=== PATIENT | male | born 1940 | race Hispanic/Latino ===

== ENCOUNTER 2018-08-24 19:54 | Emergency (ER) | payer MEDICARE ==
[~2018-08-24 19:54] MED LIST: ABIR250T PO; CYAN500L3 SL; LEVO500T2 PO; LISI1TAB13 PO; PNV1TABL57 PO; POTA20TA82 PO; PRED20TA3 PO; TAMS0.4C32 PO
[2018-08-24 20:18] LABS: BASOPHILS % (AUTO) 0.5 % (0.0-5.0); EOSINOPHILS % (AUTO) 0.3 % (0.0-8.0); HEMATOCRIT 28.5 % (42-54); LYMPHOCYTES % (AUTO) 26.6 % (21.0-51.0); MEAN CORPUSCULAR HEMOGLOBIN 31.1 pg (27.0-33.0); MEAN CORPUSCULAR HGB CONC 32.3 g/dL (32.0-36.0); MEAN CORPUSCULAR VOLUME 96.5 fL (79-99); MONOCYTES % (AUTO) 3.5 % (3.0-13.0); NEUTROPHILS % (AUTO) 69.1 % (40.0-77.0); NUCLEATED RED BLOOD CELLS 0.1 % (0.0-0.19); PLATELET COUNT (AUTO) 152 K/uL (130-400); RED BLOOD CELL COUNT(AUTO) 2.96 MIL/uL (4.50-6.20); RED CELL DISTRIBUTION WIDTH 15.2 % (11.0-15.5); WHITE BLOOD COUNT (AUTO) 5.9 K/uL (4.8-10.8)
[2018-08-24 20:29] LABS: CREATININE 2.2 mg/dL (0.5-1.5); POTASSIUM 4.6 mmol/L (3.5-5.1)
[2018-08-24] MEDS ORDERED: ONDANSETRON HCL 4 MG/2 ML VIAL ONE (20:37)
[2018-08-24] MEDS ORDERED: SODIUM CHLORIDE 0.9% 1000ML 1,000 ML IV ONE ×2 (20:37→22:36)
[2018-08-24 20:38] LABS: ALBUMIN 2.9 g/dL (3.5-5.0); BILIRUBIN,TOTAL 0.7 mg/dL (0.2-1.0); TOTAL PROTEIN, SERUM 6.3 g/dL (6.0-8.3)
== END 2018-08-25 00:53 | disposition home or self-care (01) ==
LOC: EDH 19:54
DX: E86.0 Dehydration (principal); I10 Essential (primary) hypertension; Z85.46 Personal history of malignant neoplasm of prostate
CPT/HCPCS: 36415; 80053; 82150; 82550; 83690; 84484; 85025; 93005; 96361; 96374; 99285; J2405; J7030 ×2

== ENCOUNTER 2020-01-23 08:59 | Inpatient (IN) | payer MEDICARE ==
[~2020-01-23] VITALS: Ht 152.4 cm; Wt 74.4 kg
[~2020-01-23 08:59] MED LIST changes: -LISI1TAB13 PO; +LISI1TAB29 PO
[2020-01-23 09:18] LABS: BASOPHILS % (AUTO) 0.1 % (0.0-5.0); EOSINOPHILS % (AUTO) 0.5 % (0.0-8.0); HEMATOCRIT 37.3 % (42-54); LYMPHOCYTES % (AUTO) 16.9 % (21.0-51.0); MEAN CORPUSCULAR HEMOGLOBIN 31.9 pg (27.0-33.0); MEAN CORPUSCULAR HGB CONC 30.8 g/dL (32.0-36.0); MEAN CORPUSCULAR VOLUME 103.3 fL (79-99); MONOCYTES % (AUTO) 12.8 % (3.0-13.0); NEUTROPHILS % (AUTO) 69.1 % (40.0-77.0); PLATELET COUNT (AUTO) 156 K/uL (130-400); RED BLOOD CELL COUNT(AUTO) 3.61 MIL/uL (4.50-6.20); WHITE BLOOD COUNT (AUTO) 7.9 K/uL (4.8-10.8)
[2020-01-23 09:22] LABS: APPEARANCE,URINE Clear (CLEAR); BILIRUBIN,URINE Negative (NEGATIVE); COLOR,URINE Yellow (YELLOW); GLUCOSE, URINE (UA) Negative (NEGATIVE); KETONES,URINE Negative (NEGATIVE); LEUKOCYTE ESTERASE ,URINE Negative (NEGATIVE); NITRATE,URINE Negative (NEGATIVE); OCCULT BLOOD,URINE Large (NEGATIVE); PROTEIN,URINE Trace mg/dL (NEGATIVE); UROBILINOGEN,URINE 0.2 mg/dL (0.2-1.0)
[2020-01-23 09:25] LABS: CREATININE 3.8 mg/dL (0.5-1.5)
[2020-01-23 09:30] LABS: ALBUMIN 3.5 g/dL (3.5-5.0); BILIRUBIN,TOTAL 0.6 mg/dL (0.2-1.0); TOTAL PROTEIN, SERUM 7.3 g/dL (6.0-8.3)
[2020-01-23 09:32] LABS: AMORPHOUS SEDIMENT,UR Few /LPF (None Seen); BACTERIA,URINE Rare /HPF (None Seen); RBC,URINE 26-50 /HPF (0-1); SQUAMOUS EPITHELIAL CELL,UR None Seen /HPF (0-2); WBC,URINE None Seen /HPF (0-1)
[2020-01-23 09:55] LABS: INR 0.91 (0.85-1.15); PARTIAL THROMBOPLASTIN TIME 24.7 SEC (26.3-35.5); PROTHROMBIN TIME 9.9 SEC (9.6-11.6)
[2020-01-23] MEDS: SODIUM CHLORIDE 0.9% 1000ML 1,000 ML IV SCH ×2 (11:30→13:30)
[2020-01-23 12:00] VITALS: BP 169/76
[2020-01-23] MEDS: CEFTRIAXONE SODIUM 1 GM IVP SCH (12:00)
[2020-01-23] MEDS ORDERED: MEGE40TA22 PO (12:10)
[2020-01-23] MEDS ORDERED: PRED10TA3 PO (12:13)
[2020-01-23] MEDS ORDERED: CEFTRIAXONE SODIUM 1 GM ONE (12:29)
--- NOTE | 2020-01-23 13:30 | NUR ---
UROLOGY CONSULT Dr. Poole notified of consult over the telephone and he is aware.
[2020-01-23 16:00] VITALS: BP 146/79
[2020-01-23 19:30] VITALS: BP 140/71
--- NOTE | 2020-01-23 20:00 | NUR ---
UROLOGY UPDATE Dr. Poole came to see patient. Stated this is a patient of Dr. Zuniga and to let him know in AM of consult. Aniwa Estefany and nurse Charlene have been updated. Family was updated as well. Urine is clear, yellow in Fuentes bag.
[2020-01-23 23:05] VITALS: BP 141/70
[2020-01-24 03:42] VITALS: BP 152/73
[2020-01-24] MEDS: SODIUM CHLORIDE 0.9% 1000ML 1,000 ML IV SCH ×4 (04:40→21:24)
--- NOTE | 2020-01-24 05:22 | NUR ---
SLEPT Pt slept well.Family member at bedside.Fuentes catheter patent,draining clear,yellow urine to bedside drainage.
[2020-01-24 07:15] VITALS: BP 158/75
[2020-01-24 11:04] VITALS: BP 142/68
[2020-01-24] MEDS: CEFTRIAXONE SODIUM 1 GM IVP SCH (14:02)
[2020-01-24 14:05] LABS: CREATININE 2.3 mg/dL (0.5-1.5); POTASSIUM 3.6 mmol/L (3.5-5.1)
[2020-01-24 15:45] VITALS: BP 146/69
--- NOTE | 2020-01-24 16:30 | NUR ---
[facility] consult Patient assessed as ordered. Patient previously had wound on left ankle anterior; wound has healed and requires only a protective dressing. Report given to patient's nurse, Olga REAL.
--- NOTE | 2020-01-24 16:46 | NUR ---
INITIAL SW met with patient. Patient lives with daughter, Yenny Meier, [phone]. Patient has [facility] daily. Patient has no PHC. DME: shower chair, [employer]. Patient needs help with ADL's. She states she gets tired. Patient does not drive. Daughter helps with transportation. PCP is dr. Ronen Tran. Pharmacy is [facility] in [place]. DCP is home. Addendum: 01/24/20 at 1649 by CRISTIANA RODRIGUEZ SS Amended: Links added.
[2020-01-24 19:00] VITALS: BP 141/69
--- NOTE | 2020-01-24 20:36 | NUR ---
MD Dr HENRIQUEZ came to see pt.He ordered ct scan and signed off case.
--- NOTE | 2020-01-24 22:24 | NUR ---
CT Pt taken to ct scan dept via wheelchair accompanied per tech.
[2020-01-25] VITALS: BP 144/79
[2020-01-25 04:00] VITALS: BP 156/73
[2020-01-25 07:46] VITALS: BP_SYST 139; BP_SYST 155; BP_DIAS 74; BP_DIAS 88
[2020-01-25 10:36] VITALS: BP 155/73
[2020-01-25] MEDS: CEFTRIAXONE SODIUM 1 GM IVP SCH (12:00)
[2020-01-25] MEDS: SODIUM CHLORIDE 0.9% 1000ML 1,000 ML IV SCH (13:30)
== END 2020-01-25 14:40 | disposition home or self-care (01) | DRG 699 ==
LOC: EDH 08:59 → EDHIP 11:08 → 3CH 13:00
PROVIDERS: ADMIT Internal Medicine Hematology & Oncology; ATTEND Internal Medicine Hematology & Oncology
DX: N13.9 Obstructive and reflux uropathy, unspecified (principal); N17.9 Acute kidney failure, unspecified; C79.51 Secondary malignant neoplasm of bone; C61 Malignant neoplasm of prostate; N18.3 Chronic kidney disease, stage 3 (moderate); I12.9 Hypertensive chronic kidney disease with stage 1 through stage 4 chronic kidney disease, or unspecified chronic kidney disease; H91.90 Unspecified hearing loss, unspecified ear; N32.0 Bladder-neck obstruction; Z51.11 Encounter for antineoplastic chemotherapy
CPT/HCPCS: 36415; 74176; 76770; 80048; 80053; 81001; 85025; 85610; 85730; G0378; J0696; J7030